=== PATIENT | male | born 1945 | race Two or more races ===

== ENCOUNTER 2022-03-22 08:45 | Inpatient (IN) | payer OTHER ==
[~2022-03-22 08:45] MED LIST: ADULT ASPIRIN81 MG PO; ALPHAGAN P5 M1 OP; CALCIUM1 TAB PO; CLARITIN10 M1 PO; FLEXIRIL PO; GLYCOTROL CAPS1 EACH PO; LIPITOR20 MG PO; LISINOPRIL20 MG PO; PROSCAR5 MG PO; TRAMADOL HCL E100 M1 PO; [UNRECOGNIZED DRUG - OTHER]
[2022-03-22] MEDS ORDERED: DOXAZOSIN MESYLA2 MG PO (09:58)
[2022-03-22] MEDS ORDERED: ATORVASTATIN CA10 MG PO (09:59)
[2022-03-22] MEDS ORDERED: LATANOPROST 0.7.5 ML OP (09:59)
[2022-03-22] MEDS ORDERED: FINASTERIDE5 MG PO (09:59)
[2022-03-29] MEDS ORDERED: LOSARTAN POTASS50 MG (11:12)
[2022-03-29] MEDS ORDERED: LATANOPROST2.5 ML (11:12)
[2022-03-30] MEDS ORDERED: GABAPENTIN100 MG PO (12:31)
[2022-03-30] MEDS ORDERED: NORFLEX100MG PO (12:31)
[2022-03-30] MEDS ORDERED: OXYC1TAB9 PO (12:31)
[2022-03-30] MEDS ORDERED: XARELTO10 MG PO (12:31)
== END 2022-03-30 15:08 | DRG 470 ==
LOC: SURH 03-28 06:00 → O/R 03-28 06:00 → SURH 03-28 08:45
PROVIDERS: ADMIT Orthopaedic Surgery; ATTEND Orthopaedic Surgery
PROC: 0SRD0JZ Replacement of Left Knee Joint with Synthetic Substitute, Open Approach (ICD-10-PCS; principal; 2022-03-28 10:15)
DX: M17.12 Unilateral primary osteoarthritis, left knee (principal); D62 Acute posthemorrhagic anemia; M85.662 Other cyst of bone, left lower leg; R26.89 Other abnormalities of gait and mobility; G47.33 Obstructive sleep apnea (adult) (pediatric); I25.10 Atherosclerotic heart disease of native coronary artery without angina pectoris; I10 Essential (primary) hypertension; H40.9 Unspecified glaucoma; Z95.0 Presence of cardiac pacemaker; Z79.01 Long term (current) use of anticoagulants